=== PATIENT | male | born 1960 | race African-American/Black ===

== ENCOUNTER 2016-07-05 20:31 | Emergency (ER) | payer MEDICARE, OTHER ==
[~2016-07-05] VITALS: Ht 180.3 cm; Wt 115.0 kg
[~2016-07-05 20:31] MED LIST: ALLO100T PO; AMLO5TAB22 PO; INDO25CA PO; INDO50 PO; LISI10TA PO; LORTA5 PO; SOMA350T PO; TYLE3 PO; bp pill
[2016-07-05 20:32] VITALS: BP 160/100; PULSE 106; RESP 18; TEMP 98.5; O2SAT 94
--- NOTE | 2016-07-05 21:20 | PD ---
HPI Chief Complaint: Pain: Acute or Chronic Time Seen by Provider: 21:18 Travel History International Travel<30 days: No Contact w/Intl Traveler<30days: No Traveled to known affect area: No History of Present Illness HPI Patient comes in complaining of gout pain in his right foot that began yesterday. Patient reports he has a history of gout and this feels similar. Patient denies any known traumas or fevers. Patient denies doing anything for this prior to coming to the emergency department. Denies any radiation of pain. Pain is worse with walking. PFSH Past Medical History Cardiovascular Problems: Yes (HTN) Diminished Hearing: No Gout: Yes Hypertension: Yes Social History Alcohol Use: Yes (BEER 1-2 EVERY OTHER DAY) Tobacco Use: Yes (when using alcohol) Substance Use: No Allergies-Medications (Allergen,Severity, Reaction): Coded Allergies: No Known Allergies (Verified , 07/05/16) Reported Meds & Prescriptions Reported Meds & Active Scripts Active Reported Tylenol-Codeine #4 (Acetaminophen-Codeine) 300-60 mg Tab 1 Tab PO Q4H PRN Lisinopril-Hctz 10-12.5 Mg Tab 1 Tab PO DAILY Amlodipine (Amlodipine Besylate) 5 Mg Tab 5 Mg PO DAILY Review of Systems Except as stated in HPI: all other systems reviewed are Neg Physical Exam Narrative GENERAL: Well-developed, overly nourished, in no acute distress, and non-ill appearing. SKIN: Warm and dry. HEAD: Atraumatic. Normocephalic. EYES: Pupils equal and round. EOMI. No scleral icterus. No injection or drainage. ENT: No nasal bleeding or discharge. Mucous membranes pink and moist. NECK: Trachea midline. Supple. No nuclear rigidity. CARDIOVASCULAR: Dorsal pulses 2+ intact and equal bilaterally. No pedal edema RESPIRATORY: No accessory muscle use. No respiratory distress. MUSCULOSKELETAL: No obvious deformities. No clubbing. No cyanosis. No edema. Full range of motion. Patient reports to palpation over dorsal aspect of right foot. NEUROLOGICAL: Awake and alert. No obvious cranial nerve deficits. Motor grossly within normal limits. Normal speech. PSYCHIATRIC: Appropriate mood and affect; insight and judgment normal. Data Data Last Documented VS Vital Signs Date Time Temp Pulse Resp B/P Pulse Ox O2 Delivery O2 Flow Rate FiO2 07/05/16 21:28 18 07/05/16 20:32 98.5 106 160/100 94 Orders Ketorolac Inj (Toradol Inj) (07/05/16 21:30) MDM Medical Decision Making Medical Screen Exam Complete: Yes Emergency Medical Condition: Yes Differential Diagnosis Gout, pseudogout, fracture, contusion, other Narrative Course The patient appears to have acute gouty arthritis involving the right foot. There is no evidence to suggest infectious, septic joint at this time. There was no significant erythema, heat, swelling or fluctuance. The patient has had no distal or local trauma, cuts or abrasions. There has been no fever. The patient has had similar episodes and has a history of gout. There is no trauma to suspect contusion, strain or fracture. There is no clinical evidence to suggest bursitis, tendonitis, osteoarthritis, Rheumatoid arthritis, or septic arthritis. The patient was placed on NSAID medication and the patient was instructed on ice packs as well. The patient was instructed to follow-up with primary care provider and discuss possible long-term gout treatment. The patient agreed with plan. Patient in no obvious distress upon re-evaluation. Patient was asked if they wanted to speak to my attending, which the patient did not wish to do at this time. Any questions/concerns in reference to patient diagnosis/condition discussed and clarified prior to patient's discharge. Reinforced sheer importance of close follow up with patient's primary physician or primary care clinic. Instructed patient to return to ED immediately, if symptoms return/ worsen. Pt showed understanding of above instructions. Further instructions and recommendations were detailed in discharge paperwork. Pt ambulated without difficulty out of ED at discharge. Diagnosis Primary Impression: Gout Qualified Code: M10.9 - Acute gout of right foot, unspecified cause Patient Instructions: General Instructions, Gout (ED) Additional Instructions: Follow-up with your primary care physician in 3-5 days for reevaluation. Take all medication as prescribed. Apply ice to affected area 20 minutes per hour as needed for pain. Return to the emergency department if symptoms get worse. Med/Other Pt SpecificInfo: Prescription(s) given Disposition: 01 DISCHARGE HOME Condition: Stable Neeraj Corona Jul 05, 2016 21:20
[2016-07-05] MEDS ORDERED: INDO50CA PO (21:22)
[2016-07-05] MEDS ORDERED: TYLETAB36 PO (21:27)
[2016-07-05] MEDS ORDERED: AMLO5TAB2 PO (21:27)
[2016-07-05] MEDS ORDERED: LISI10TA PO (21:27)
[2016-07-05] MEDS ORDERED: KETOROLAC TROMETHAMINE 60 MG/2 ML (IM) VIAL IM ONE (21:30)
== END 2016-07-05 21:41 | disposition home or self-care (01) ==
LOC: NEPB 20:31
DX: M10.9 Gout, unspecified (principal); I10 Essential (primary) hypertension; Z72.0 Tobacco use
CPT/HCPCS: 96372; 99283; J1885

== ENCOUNTER 2017-02-17 03:44 | Emergency (ER) | payer MEDICARE, OTHER ==
[~2017-02-17] VITALS: Ht 180.3 cm; Wt 109.5 kg
[~2017-02-17 03:44] MED LIST changes: -ALLO100T PO; +AMLO5TAB2 PO; -AMLO5TAB22 PO; -INDO25CA PO; -INDO50 PO; -LORTA5 PO; -SOMA350T PO; -TYLE3 PO; +TYLETAB36 PO; -bp pill
[2017-02-17 03:45] VITALS: BP 163/100; PULSE 117; RESP 18; TEMP 100; O2SAT 96
[2017-02-17] MEDS ORDERED: SOMA250T PO (03:56)
[2017-02-17] MEDS ORDERED: DEXAMETHASONE SOD PHOS 20 MG/5 ML VIAL IM ONE (04:45)
[2017-02-17] MEDS ORDERED: CLINDAMYCIN 600 MG PREMIX 50 ML IV ONE (04:45)
--- NOTE | 2017-02-17 04:46 | PD ---
HPI Chief Complaint: ENT Complaint Time Seen by Provider: 03:56 Travel History International Travel<30 days: No Contact w/Intl Traveler<30days: No Traveled to known affect area: No History of Present Illness HPI For 2 days patient has swelling of his throat dysphonia or dysphagia and submental lymphadenopathy he took Tylenol Motrin without relief He feels it is difficult to swallow and getting worse left his house suddenly felt he was choking PFSH Past Medical History Cardiovascular Problems: Yes (HTN) Diminished Hearing: No Gout: Yes Hypertension: Yes Past Surgical History Surgical History: No Previous Surgery Social History Alcohol Use: Yes (BEER 1-2 EVERY OTHER DAY) Tobacco Use: Yes (when using alcohol) Substance Use: No Allergies-Medications (Allergen,Severity, Reaction): Coded Allergies: No Known Allergies (Verified Adverse Reaction, Unknown, 02/17/17) Reported Meds & Prescriptions Reported Meds & Active Scripts Active Clindamycin (Clindamycin HCl) 300 Mg Cap 300 Mg PO Q6H Reported Soma (Carisoprodol) 250 Mg Tab 250 Mg PO QID PRN Tylenol-Codeine #4 (Acetaminophen-Codeine) 300-60 mg Tab 1 Tab PO Q4H PRN Lisinopril-Hctz 10-12.5 Mg Tab 1 Tab PO DAILY Amlodipine (Amlodipine Besylate) 5 Mg Tab 5 Mg PO DAILY Review of Systems Except as stated in HPI: all other systems reviewed are Neg HENT: Positive: Sore Throat, Other (dysphagia) Physical Exam Narrative GENERAL: patient's voice sounds somewhat muffled he is not drooling he is able to handle secretions SKIN: Warm and dry. HEAD: Atraumatic. Normocephalic. EYES: Pupils equal and round. No scleral icterus. No injection or drainage. ENT: Significantly swollen bilateral tonsils with exudate NECK: Trachea midline. No JVD. CARDIOVASCULAR: Regular rate and rhythm. RESPIRATORY: No accessory muscle use. Clear to auscultation. Breath sounds equal bilaterally. GASTROINTESTINAL: Abdomen soft, non-tender, nondistended. Hepatic and splenic margins not palpable. MUSCULOSKELETAL: Extremities without clubbing, cyanosis, or edema. No obvious deformities. NEUROLOGICAL: Awake and alert. No obvious cranial nerve deficits. Motor grossly within normal limits. Five out of 5 muscle strength in the arms and legs. Normal speech. PSYCHIATRIC: Appropriate mood and affect; insight and judgment normal. Data Data Last Documented VS Vital Signs Date Time Temp Pulse Resp B/P (MAP) Pulse Ox O2 Delivery O2 Flow Rate FiO2 02/17/17 07:42 02/17/17 07:18 98.7 100 22 94 Room Air Orders Orders Dexamethasone Inj (Decadron Inj) (02/17/17 04:45) Clindamycin 600 Mg Premix (Cleocin 600 M (02/17/17 04:45) Group A Rapid Strep Screen (02/17/17 04:31) Soft Tissue Neck (02/17/17 ) Ct Soft Tiss Neck W Iv Cont (02/17/17 ) Comprehensive Metabolic Panel (02/17/17 05:26) Complete Blood Count With Diff (02/17/17 05:26) Iohexol 350 Inj (Omnipaque 350 Inj) (02/17/17 06:47) Labs Laboratory Tests Test 02/17/17 05:30 White Blood Count 13.7 TH/MM3 Red Blood Count 5.01 MIL/MM3 Hemoglobin 15.5 GM/DL Hematocrit 45.7 % Mean Corpuscular Volume 91.3 FL Mean Corpuscular Hemoglobin 31.0 PG Mean Corpuscular Hemoglobin Concent 34.0 % Red Cell Distribution Width 14.7 % Platelet Count 247 TH/MM3 Mean Platelet Volume 7.0 FL Neutrophils (%) (Auto) 75.6 % Lymphocytes (%) (Auto) 7.5 % Monocytes (%) (Auto) 16.0 % Eosinophils (%) (Auto) 0.7 % Basophils (%) (Auto) 0.2 % Neutrophils # (Auto) 10.3 TH/MM3 Lymphocytes # (Auto) 1.0 TH/MM3 Monocytes # (Auto) 2.2 TH/MM3 Eosinophils # (Auto) 0.1 TH/MM3 Basophils # (Auto) 0.0 TH/MM3 CBC Comment AUTO DIFF Differential Comment AUTO DIFF CONFIRMED Toxic Vacuolation PRESENT Platelet Estimate NORMAL Platelet Morphology Comment NORMAL Red Cell Morphology Comment NORMAL Blood Urea Nitrogen 7 MG/DL Creatinine 1.08 MG/DL Random Glucose 104 MG/DL Total Protein 7.8 GM/DL Albumin 3.4 GM/DL Calcium Level 8.9 MG/DL Alkaline Phosphatase 83 U/L Aspartate Amino Transf (AST/SGOT) 19 U/L Alanine Aminotransferase (ALT/SGPT) 22 U/L Total Bilirubin 0.3 MG/DL Sodium Level 138 MEQ/L Potassium Level 3.8 MEQ/L Chloride Level 103 MEQ/L Carbon Dioxide Level 25.9 MEQ/L Anion Gap 9 MEQ/L Estimat Glomerular Filtration Rate 86 ML/MIN MDM Medical Decision Making Medical Screen Exam Complete: Yes Emergency Medical Condition: Yes Differential Diagnosis tonsillitis epiglottis bacterial tracheitis, viral pharyngitis Narrative Course pt has tonsils practically touching with exudate decadron and Clindamycin HemaPrompt Point of Care Comment Patient has decided he must leave and go home to take care of meat he left on the counter and lock up his house I tell him the risks of leaving AGAINST MEDICAL ADVICE including airway occlusion with respiratory failure and he still wants to go home and will return I give him clindamycin prescription just to assure that he is treated even if he somehow does not return I stressed the danger of leaving AGAINST MEDICAL ADVICE including Diagnosis Primary Impression: Tonsillitis with exudate Scripts Clindamycin (Clindamycin) 300 Mg Cap 300 MG PO Q6H for Infection, #40 CAP 0 Refills Prov: Rhett Dukes MD 02/17/17 Disposition: 07 AGAINST MEDICAL ADVICE Condition: Serious Rhett Dukes MD Feb 17, 2017 04:46
--- NOTE | 2017-02-17 05:21 | RADRPT ---
EXAM DATE/TIME: 02/17/2017 05:04 [facility] COMPARISON: No previous studies available for comparison. INDICATIONS : Sore throat x 1 week, Swelling this morning. MEDICAL HISTORY : Hypertension. SURGICAL HISTORY : None. ENCOUNTER: Initial ACUITY: 1 week PAIN SCORE: 7/10 LOCATION: Bilateral neck FINDINGS: The epiglottis is slightly thickened which may reflect epiglottitis. No retropharyngeal thickening is evident. The trachea is midline. No radiopaque foreign bodies are seen. There is multilevel degener ative change throughout the spine. There is calcification of the stylohyoid ligaments CONCLUSION: 1. Borderline enlargement of the epiglottis which may reflect epiglottitis. Justus Fischer MD on February 17, 2017 at 5:18 Board Certified Radiologist. This report was verified electronically.
[2017-02-17 05:44] LABS: AUTOMATED NEUTROPHIL # 10.3 TH/MM3 (1.8-7.7); BASOPHIL % 0.2 % (0.0-2.0); EOSINOPHIL # 0.1 TH/MM3 (0-0.4); EOSINOPHIL % 0.7 % (0.0-4.0); HEMATOCRIT 45.7 % (39.0-51.0); LYMPH % 7.5 % (9.0-44.0); MEAN CELL VOLUME 91.3 FL (80.0-100.0); NEUT % 75.6 % (16.0-70.0); PLATELET COUNT 247 TH/MM3 (150-450); RED BLOOD COUNT 5.01 MIL/MM3 (4.50-5.90); RED CELL DISTRIBUTION WIDTH 14.7 % (11.6-17.2); WHITE BLOOD COUNT 13.7 TH/MM3 (4.0-11.0)
[2017-02-17 05:49] LABS: HEMO FLAGS AUTO DIFF
[2017-02-17 06:18] LABS: ALKALINE PHOSPHATASE 83 U/L (45-117); ALT (GPT) 22 U/L (12-78); ANION GAP 9 MEQ/L (5-15); AST (GOT) 19 U/L (15-37); BICARBONATE 25.9 MEQ/L (21.0-32.0); BLOOD UREA NITROGEN 7 MG/DL (7-18); CHLORIDE 103 MEQ/L (98-107); GLOMERULAR FILTRATION RATE 86 ML/MIN (>89); POTASSIUM 3.8 MEQ/L (3.5-5.1); SODIUM (NA) 138 MEQ/L (136-145); TOTAL BILIRUBIN ADULT 0.3 MG/DL (0.2-1.0)
[2017-02-17 06:23] LABS: PLATELET ESTIMATE SMEAR NORMAL (NORMAL); PLATELET MORPHOLOGY NORMAL (NORMAL); SCAN/DIFF AUTO DIFF CONFIRMED; TOXIC VACUOLATION PRESENT (NONE SEEN)
[2017-02-17] MEDS ORDERED: IOHEXOL 350 MG/ML 10 ML VIAL (for RAD DIAG) IVCONTRAST ONE (06:47)
--- NOTE | 2017-02-17 06:56 | RADRPT ---
EXAM DATE/TIME: 02/17/2017 06:32 [facility] COMPARISON: No previous studies available for comparison. INDICATIONS : Throat swelling and dysphagia; rule out epiglottitis. IV CONTRAST: 71 cc Omnipaque 350 (iohexol) IV RADIATION DOSE: 17.66 CTDIvol (mGy) MEDICAL HISTORY : Hypertension. Gout SURGICAL HISTORY : None. ENCOUNTER: Initial ACUITY: 2 days PAIN SCALE: 6/10 LOCATION: neck TECHNIQUE: Volumetric scanning of the neck was performed. Using automated exposure control and adjustment of th e mA and/or kV according to patient size, radiation dose was kept as low as reasonably achievable to obtain optimal diagnostic quality images. DICOM format image data is available electronically for r eview and comparison. FINDINGS: Examination of the skull base demonstrates no evidence of deep infiltrating mucosal lesion. The oroph arynx, hypopharynx, glottic and subglottic airway demonstrate no abnormality. The epiglottis is ricardo l though there is mild thickening of the area epiglottic folds. There is prominent lymphoid tissue in volving Waldeyer's ring. There multiple bilateral enlarged lymph nodes in group 2 and 3 likely inflam matory. The thyroid gland demonstrates no abnormality. The lung apices demonstrate no abnormality. CONCLUSION: 1. No evidence of epiglottitis though there is thickening of the aryepiglottic folds. 2. Prominent lymphoid tissue as well as adenopathy likely related to infectious etiology. There is no evidence of abscess. Justus Fischer MD on February 17, 2017 at 6:51 Board Certified Radiologist. This report was verified electronically.
[2017-02-17 07:18] VITALS: BP 135/88; PULSE 100; RESP 22; TEMP 98.7; O2SAT 94
[2017-02-17] MEDS ORDERED: CLIN300C5 PO (07:26)
== END 2017-02-17 07:43 | disposition left against medical advice (07) ==
LOC: NEPC 03:44
DX: J03.00 Acute streptococcal tonsillitis, unspecified (principal); B95.0 Streptococcus, group A, as the cause of diseases classified elsewhere; I10 Essential (primary) hypertension; Z72.0 Tobacco use
CPT/HCPCS: 70360; 70491; 80053; 85025; 87880; 96365; 96372; 99285; J1100; Q9967

== ENCOUNTER 2017-06-05 01:06 | Emergency (ER) | payer MEDICARE, OTHER ==
[~2017-06-05] VITALS: Ht 180.3 cm; Wt 103.5 kg
[~2017-06-05 01:06] MED LIST changes: +CLIN300C5 PO; +SOMA250T PO
[2017-06-05 01:13] VITALS: BP 150/78; PULSE 84; RESP 18; TEMP 98.9; O2SAT 95
[2017-06-05] MEDS ORDERED: NORC5TAB PO (03:17)
[2017-06-05] MEDS ORDERED: INDO50CA PO (03:17)
--- NOTE | 2017-06-05 03:26 | PD ---
HPI Chief Complaint: Pain: Acute or Chronic Time Seen by Provider: 03:13 Travel History International Travel<30 days: No Contact w/Intl Traveler<30days: No Traveled to known affect area: No History of Present Illness HPI 56-year-old black male presents emergency department with complaints of recurrent gout. He states that he has had gout for many years. This is his classical gum pain in his left foot. It is painful, warm and swollen. Present for the last several days. No exacerbating activity. No alleviating activity. Patient states he usually gets a shot of Decadron and oral pills which improves his symptoms PFSH Past Medical History Cardiovascular Problems: Yes (HTN) Diminished Hearing: No Gout: Yes Hypertension: Yes Past Surgical History Surgical History: No Previous Surgery Social History Alcohol Use: Yes (OCC) Tobacco Use: Yes (CIGARS OCC) Substance Use: No Allergies-Medications (Allergen,Severity, Reaction): Coded Allergies: No Known Allergies (Verified Adverse Reaction, Unknown, 06/05/17) Reported Meds & Prescriptions Reported Meds & Active Scripts Active [place] (Hydrocodone-Acetaminophen) 5 Mg-325 Mg Tab 1 Tab PO Q6H PRN Indomethacin 50 Mg Cap 50 Mg PO TID 5 Days Take with food, milk, or antacids to decrease stomach adverse effects. Reported Soma (Carisoprodol) 250 Mg Tab 250 Mg PO QID PRN Tylenol-Codeine #4 (Acetaminophen-Codeine) 300-60 mg Tab 1 Tab PO Q4H PRN Lisinopril-Hctz 10-12.5 Mg Tab 1 Tab PO DAILY Amlodipine (Amlodipine Besylate) 5 Mg Tab 5 Mg PO DAILY Review of Systems Except as stated in HPI: all other systems reviewed are Neg Physical Exam Narrative GENERAL: Well-developed, well-nourished in no acute distress. Nontoxic appearing. HEAD: Normocephalic, atraumatic. EYES: Pupils equal round and reactive. Extraocular motions intact. No scleral icterus. No injection or drainage. ENT: TMs clear without erythema. The external auditory canals clear. Nose: clear . Posterior pharynx is pink and moist. No tonsillar edema or exudate. Uvula midline. Airway patent. NECK: Trachea midline.Supple, nontender, moves head freely. No central bony tenderness or spasm. CARDIOVASCULAR: Regular rate and rhythm without murmurs, gallops, or rubs. RESPIRATORY: Clear to auscultation. Breath sounds equal bilaterally. No wheezes , rales, or rhonchi. GASTROINTESTINAL: Abdomen soft, non-tender, nondistended. No hepato-splenomegaly , or palpable masses. No guarding. EXTREMITIES: No clubbing, cyanosis, examination of left lower extremity reveals a painful swollen left distal forefoot involving the great toe. He has intact sensation with good distal pulses. No skin breakdown. BACK: Nontender without deformity or crepitance. No flank tenderness. Data Data Last Documented VS Vital Signs Date Time Temp Pulse Resp B/P (MAP) Pulse Ox O2 Delivery O2 Flow Rate FiO2 06/05/17 01:13 98.9 84 18 150/78 (102) 95 Orders Orders Ed Discharge Order (06/05/17 03:17) Dexamethasone Inj (Decadron Inj) (06/05/17 03:30) Acetamin-Hydrocod 325-5 Mg ([place] 5-325 (06/05/17 03:30) MDM Medical Decision Making Medical Screen Exam Complete: Yes Emergency Medical Condition: Yes Medical Record Reviewed: Yes Differential Diagnosis Differential diagnosis: Sprain, strain, gout Narrative Course Patient is given Decadron 10 mg IM. 5 mg NORCO 2 Diagnosis Primary Impression: Gout Qualified Codes: M10.9 - Gout, unspecified Patient Instructions: Narcotic given in the ED, General Instructions Additional Instructions: Rest. Elevation. Medications as directed. Follow-up with your doctor next week. Med/Other Pt SpecificInfo: Prescription(s) given Scripts Hydrocodone-Acetaminophen ([place]) 5 Mg-325 Mg Tab 1 TAB PO Q6H Y for PAIN, #12 TAB 0 Refills Prov: Nicola York MD 06/05/17 Indomethacin (Indomethacin) 50 Mg Cap 50 MG PO TID for 5 Days, CAP 0 Refills Take with food, milk, or antacids to decrease stomach adverse effects. Prov: Nicola York MD 06/05/17 Disposition: 01 DISCHARGE HOME Condition: Stable Pedro Person Jun 05, 2017 03:26
[2017-06-05] MEDS ORDERED: DEXAMETHASONE SOD PHOS 20 MG/5 ML VIAL IM ONE (03:30)
[2017-06-05] MEDS ORDERED: ACETAMINOPHEN/HYDROcodone 325 MG/5 MG TAB PO ONE (03:30)
== END 2017-06-05 04:09 | disposition home or self-care (01) ==
LOC: NEPD 01:06
DX: M10.9 Gout, unspecified (principal); I10 Essential (primary) hypertension; Z72.0 Tobacco use
CPT/HCPCS: 96372; 99283; J1100